=== PATIENT | male | born 1970 | race Caucasian/White ===

== ENCOUNTER 2017-10-16 11:10 | Emergency (ER) | payer OTHER | END 2017-10-16 15:06 | disposition home or self-care (01) | LOC: FTE 11:10 | DX: M54.41 Lumbago with sciatica, right side (principal) | CPT/HCPCS: 99284; Z7502 ==

== ENCOUNTER 2018-06-25 14:51 | Emergency (ER) | payer OTHER | END 2018-06-25 17:41 | disposition home or self-care (01) | LOC: FTE 14:51 | DX: M79.604 Pain in right leg (principal) | CPT/HCPCS: 99283; Z7502 ==

== ENCOUNTER 2019-01-16 15:09 | Emergency (ER) | payer OTHER ==
[2019-01-16] MEDS: HYDROCODONE/APAP (5/325) TAB PO (16:39)
== END 2019-01-16 18:15 | disposition home or self-care (01) ==
LOC: FTE 15:09
DX: S82.432A Displaced oblique fracture of shaft of left fibula, initial encounter for closed fracture (principal); W10.9XXA Fall (on) (from) unspecified stairs and steps, initial encounter; Y92.9 Unspecified place or not applicable
CPT/HCPCS: 29515; 73590; 73630-LT; 99283-25